=== PATIENT | female | born 1960 | race Caucasian/White ===

== ENCOUNTER 2019-12-30 10:37 | Emergency (ER) | payer BC ==
[~2019-12-30] VITALS: Ht 160 cm; Wt 59.0 kg
[2019-12-30] MEDS ORDERED: SIMVASTATIN5 MG (10:56)
[2019-12-30] MEDS ORDERED: DICLOFENAC SODI75 MG PO (12:34)
== END 2019-12-30 12:49 | disposition home or self-care (01) ==
LOC: ER 10:37
DX: S20.212A Contusion of left front wall of thorax, initial encounter (principal); S20.211A Contusion of right front wall of thorax, initial encounter; S60.222A Contusion of left hand, initial encounter; W18.39XA Other fall on same level, initial encounter; Y93.89 Activity, other specified; Y92.488 Other paved roadways as the place of occurrence of the external cause; Y99.8 Other external cause status